=== PATIENT | female | born 1990 | race Caucasian/White ===

== ENCOUNTER 2016-11-02 00:23 | Emergency (ER) | payer OTHER | END 2016-11-02 03:42 | disposition home or self-care (01) | LOC: ER1 00:23 | DX: N39.0 Urinary tract infection, site not specified (principal); Z87.891 Personal history of nicotine dependence | CPT/HCPCS: 36415; 81001; 84703; 99283 ==

== ENCOUNTER 2021-08-21 16:46 | Emergency (ER) | payer OTHER ==
[~2021-08-21 16:46] MED LIST: CLARITIN10 MG PO; IBUPROFEN600 MG PO; PRENATABS FA T1 EACH PO; PRENATABS RX T1 EACH PO; PRILOSEC OTC20 MG PO; SINGULAIR10 MG PO; TESSALON PERLE100 MG PO; ZITHROMAX250 MG PO
== END 2021-08-21 19:33 | disposition home or self-care (01) ==
LOC: ER1 16:46
DX: B34.9 Viral infection, unspecified (principal); Z20.822 Contact with and (suspected) exposure to COVID-19; F17.200 Nicotine dependence, unspecified, uncomplicated
CPT/HCPCS: 0240U; 87081; 87880; 99283